=== PATIENT | female | born 1960 | race Caucasian/White ===

== ENCOUNTER → 2016-12-11 | Outpatient (CLI) | payer MEDICARE, MEDICAID ==
[~2016-12-11] VITALS: Ht 167.6 cm; Wt 97.5 kg
[~2016-12-11] MED LIST: ACTOS 45MG45 MG/TAB PO; ASPIRIN E.C. 8181 MG PO; B-12 500 MCG PO; BENADRYL25 M2 PO; CALCIUM 600600 M2 PO; CELEXA10 MG PO; CLARITIN 1010 MG/TAB PO; COGENTIN 1MG1 MG/TAB PO; EXCEDRIN1 TAB PO; GLUCOPHAGE1000 MG PO; GLUCOPHAGE500 MG/TAB PO; HALDOL 1MG T1 MG/TAB PO; LAMICTAL XR200 MG PO; MELATONIN5 M1 PO; MEVACOR10 MG PO; MOTRIN 800800 MG/TAB PO; MULTIPLE VITAMI1 TA1 PO; NORCO 325 MG-51 TAB PO; OSTEO-BI-FLEX 21 TAB PO; PAXIL CR25 MG PO; PAXIL CR37.5 MG PO; PROBIOTICA100 Milli1 PO; PROTONIX 40MG T40 MG PO; REQUIP 0.5MG0.5 MG PO; RISPERDAL4 MG PO; SEROQUEL XR300 MG PO; STRATTERA 25MG25 MG PO; SYNTHROID0.088 MG/T PO; TENORMIN 2525 MG/TAB PO; TRADJENTA5 MG PO; TRAJENTA PO; ULTRAM 50MG TAB50 MG PO; VIIBRYD20 MG PO; VISTARIL50 MG PO; VITAMIN B121000 MCG PO; VITAMIN D32000 IU PO; VRAYLAR3 MG PO; VRAYLAR4.5 MG PO; ZOCOR 40MG40 MG PO
[2016-12-11 14:48] VITALS: BP 119/71; PULSE 89
[2016-12-11 15:36] VITALS: BP 119/71; PULSE 89
== END ==
LOC: LIGHT 14:05
DX: E11.65 Type 2 diabetes mellitus with hyperglycemia (principal); E78.4 Other hyperlipidemia; E03.8 Other specified hypothyroidism; M15.8 Other polyosteoarthritis; Z68.34 Body mass index [BMI] 34.0-34.9, adult

== ENCOUNTER → 2017-02-05 | Outpatient (CLI) | payer MEDICARE, MEDICAID ==
[~2017-02-05] VITALS: Ht 167.6 cm; Wt 97.3 kg
[2017-02-05 16:47] VITALS: BP 119/64; PULSE 83
== END ==
LOC: LIGHT 15:47
DX: E11.65 Type 2 diabetes mellitus with hyperglycemia (principal); E78.4 Other hyperlipidemia; E03.8 Other specified hypothyroidism; M15.8 Other polyosteoarthritis; Z68.34 Body mass index [BMI] 34.0-34.9, adult

== ENCOUNTER → 2017-04-16 | Outpatient (CLI) | payer MEDICARE, MEDICAID ==
[~2017-04-16] VITALS: Ht 167.6 cm; Wt 98.4 kg
[2017-04-16 16:52] VITALS: BP 112/80; PULSE 102
== END ==
LOC: LIGHT 12:22
DX: E11.65 Type 2 diabetes mellitus with hyperglycemia (principal); E78.5 Hyperlipidemia, unspecified; E03.9 Hypothyroidism, unspecified; M15.9 Polyosteoarthritis, unspecified; Z68.35 Body mass index [BMI] 35.0-35.9, adult

== ENCOUNTER → 2017-06-11 | Outpatient (CLI) | payer MEDICARE, MEDICAID ==
[~2017-06-11] VITALS: Ht 167.6 cm; Wt 99.8 kg
[2017-06-11 13:36] VITALS: BP 114/80; PULSE 72
== END ==
LOC: LIGHT 14:18
DX: E11.65 Type 2 diabetes mellitus with hyperglycemia (principal); E78.5 Hyperlipidemia, unspecified; E03.9 Hypothyroidism, unspecified; M15.9 Polyosteoarthritis, unspecified; Z68.35 Body mass index [BMI] 35.0-35.9, adult; Z71.3 Dietary counseling and surveillance

== ENCOUNTER → 2017-08-13 | Outpatient (CLI) | payer MEDICARE, MEDICAID ==
[~2017-08-13] VITALS: Ht 167.6 cm; Wt 98.7 kg
[2017-08-13 14:24] VITALS: BP 120/80; PULSE 80
== END ==
LOC: LIGHT 10:17
DX: E11.65 Type 2 diabetes mellitus with hyperglycemia (principal); E78.5 Hyperlipidemia, unspecified; E03.9 Hypothyroidism, unspecified; M15.9 Polyosteoarthritis, unspecified

== ENCOUNTER → 2017-11-05 | Outpatient (CLI) | payer MEDICARE, MEDICAID ==
[~2017-11-05] VITALS: Ht 167.6 cm; Wt 98.9 kg
[~2017-11-05] MED LIST changes: +PROAMATINE 5MG T5 MG PO
[2017-11-05 15:05] VITALS: BP 110/80; PULSE 72
== END ==
LOC: LIGHT 10-08 09:44
DX: E11.65 Type 2 diabetes mellitus with hyperglycemia (principal); E78.5 Hyperlipidemia, unspecified; E03.9 Hypothyroidism, unspecified; M15.9 Polyosteoarthritis, unspecified; Z68.35 Body mass index [BMI] 35.0-35.9, adult; Z71.3 Dietary counseling and surveillance
CPT/HCPCS: G0463

== ENCOUNTER → 2018-03-11 | Outpatient (CLI) | payer MEDICARE, MEDICAID ==
[~2018-03-11] VITALS: Ht 167.6 cm; Wt 102.1 kg
[~2018-03-11] MED LIST changes: +MASON NATURAL2000 IU PO
[2018-03-11 15:02] VITALS: BP 114/72; PULSE 84
== END ==
LOC: LIGHT 14:46
DX: E11.65 Type 2 diabetes mellitus with hyperglycemia (principal); E78.5 Hyperlipidemia, unspecified; E03.9 Hypothyroidism, unspecified; M15.9 Polyosteoarthritis, unspecified; Z68.36 Body mass index [BMI] 36.0-36.9, adult; Z71.3 Dietary counseling and surveillance
CPT/HCPCS: G0463

== ENCOUNTER → 2020-08-16 | Outpatient (CLI) | payer MEDICARE, MEDICAID ==
[~2020-08-16] VITALS: Ht 166.4 cm; Wt 112.3 kg
[~2020-08-16] MED LIST changes: +GLUCOPHAGE XR500 M1 PO; -GLUCOPHAGE1000 MG PO; +LEVEMIR FLEX100 U/ML SQ; -MEVACOR10 MG PO; +MEVACOR40 MG PO; +SEROQUEL 1100 MG/TAB PO; -VRAYLAR4.5 MG PO; +VRAYLAR6 MG PO
[2020-08-16 13:41] VITALS: BP 136/64; PULSE 92
== END ==
LOC: LIGHT 10:31
DX: E66.01 Morbid (severe) obesity due to excess calories (principal); Z68.41 Body mass index [BMI] 40.0-44.9, adult; E11.9 Type 2 diabetes mellitus without complications; E78.5 Hyperlipidemia, unspecified
CPT/HCPCS: G0463